=== PATIENT | male | born 1955 | race Caucasian/White ===

== ENCOUNTER 2019-05-07 12:01 | Inpatient (IN) | payer OTHER ==
[2019-05-07 13:36] VITALS: BMI 20.3
--- NOTE | 2019-05-07 13:46 | HP ---
CIWA Score Nausea/Vomitin Muscle Tremors: 4-Moderate,w/Arms Extend Anxiety: 4-Mod. Anxious/Guarded Agitation: 4-Moderately Restless Paroxysmal Sweats: 1-Minimal Palms Moist Orientation: 1-Uncertain about Date Tacttile Disturbances: 0-None Auditory Disturbances: 0-None Visual Disturbances: 1-Very Mild Sensitivity Headache: 1-Very Mild (patient intoxicated) CIWA-Ar Total Score: 19 - Admission Criteria OASAS Guidelines: Admission for Medically Managed Detox: Requires at least one of the followin. CIWA greater than 12 2. Seizures within the past 24 hours 3. Delirium tremens within the past 24 hours 4. Hallucinations within the past 24 hours 5. Acute intervention needed for co occurring medical disorder 6. Acute intervention needed for co occurring psychiatric disorder 7. Severe withdrawal that cannot be handled at a lower level of care (continued vomiting, continued diarrhea, abnormal vital signs) requiring intravenous medication and/or fluids 8. Admitting History and Physical - Admission Chief Complaint: " I want to stop drinking. I don't remember anything." History of Present Illness: 63 year old male with alcohol dependence with intoxication and withdrawals. He is drinking 4 pints of alcohol daily; whiskey daily and beers in between, was drinking alcohol from a water bottle when he came in. He has passed out in the past and has multiple blackout. Patient is a very poor historian. Easily agitated and easily enraged. Patient smokes marijuana sporadically, but denies other substances of abuse on a daily basis. Patient smokes ciggarettes, 1/2 ppd daily, last smoked today. Psurgery: None PMH: None poor historian Limitations to Obtaining History: Intoxication, Poor Historian - Past Surgical History Past Surgical History: Yes: None - Smoking History Smoking history: Current every day smoker Have you smoked in the past 12 months: Yes Aproximately how many cigarettes per day: 2 - Alcohol/Substance Use Hx Alcohol Use: Yes (4 pints of whiskey daily) Number of Drinks Daily: 10 History of Substance Use: reports: Marijuana Date of Last Use: 05/07/19 - Social History Usual Living Arrangement: Yes: Alone Do you think of yourself as: Straight/Heterosexual ADL: Independent Occupation: unemployed History of Recent Travel: No Admission [facility] Chief Complaint: " I want to stop drinking. I don't remember anything." Allergies/Adverse Reactions: Allergies Allergy/AdvReac Type Severity Reaction Status Date / Time No Known Allergies Allergy Verified 06/18/16 17:47 History of Present Illness: 63 year old male with alcohol dependence with intoxication and withdrawals. He is drinking 4 pints of alcohol daily; whiskey daily and beers in between, was drinking alcohol from a water bottle when he came in. He has passed out in the past and has multiple blackout. Patient is a very poor historian. Easily agitated and easily enraged. Patient smokes marijuana sporadically, but denies other substances of abuse on a daily basis. Patient smokes ciggarettes, 1/2 ppd daily, last smoked today. Psurgery: None PMH: None poor historian Exam Limitations: Intoxication - Ebola screening Have you traveled outside of the country in the last 21 days: No Have you had contact with anyone from an Ebola affected area: No Have you been sick,other than usual withdrawal symptoms: No Do you have a fever: No - Review of Systems Constitutional: Chills, Loss of Appetite EENT: reports: Blurred Vision Respiratory: reports: No Symptoms reported Cardiac: reports: No Symptoms Reported GI: reports: Nausea, Abdominal cramping : reports: No Symptoms Reported Musculoskeletal: reports: No Symptoms Reported Integumentary: reports: No Symptoms Reported Neuro: reports: No Symptoms reported Endocrine: reports: No Symptoms Reported Hematology: reports: No Symptoms Reported Psychiatric: reports: Orientated x3 (not oriented to time), Agitated, Anxious Other Systems: Reviewed and Negative Patient History - Patient Medical History Hx Anemia: No Hx Asthma: No Hx Chronic Obstructive Pulmonary Disease (COPD): No Hx Cancer: No Hx Cardiac Disorders: No Hx Congestive Heart Failure: No Hx Hypertension: No Hx Hypercholesterolemia: No Hx Pacemaker: No HX Cerebrovascular Accident: No Hx Seizures: No Hx Dementia: No Hx Diabetes: No Hx Gastrointestinal Disorders: No Hx Liver Disease: No Hx Genitourinary Disorders: No Hx Sexually Transmitted Disorders: No Hx Renal Disease (ESRD): No Hx Thyroid Disease: No Hx Human Immunodeficiency Virus (HIV): No Hx Hepatitis C: No Hx Depression: Yes Hx Suicide Attempt: No Hx Bipolar Disorder: No Hx Schizophrenia: No - Patient Surgical History Past Surgical History: Yes Hx Neurologic Surgery: No Hx Cataract Extraction: No Hx Cardiac Surgery: No Hx Lung Surgery: No Hx Breast Surgery: No Hx Breast Biopsy: No Hx Abdominal Surgery: No Hx Appendectomy: No Hx Cholecystectomy: No Hx Genitourinary Surgery: No Hx Section: No Hx Orthopedic Surgery: No Other Surgical History: ALL TOOTH EXTRACTION Anesthesia Reaction: No - PPD History Previous Implant?: Yes Documented Results: Negative w/proof Implanted On Prior [facility] Admission?: Yes Date: 06/20/16 Results: negative PPD to be Administered?: Yes - Smoking Cessation Smoking history: Current every day smoker Have you smoked in the past 12 months: Yes Aproximately how many cigarettes per day: 2 Cigars Per Day: 0 Hx Chewing Tobacco Use: No Initiated information on smoking cessation: Yes 'Breaking Loose' booklet given: 05/07/19 - Substances abused Alcohol Other (specify): whiskey Substance route: Oral Frequency: Daily Amount used: 4 pints Age of first use: 11 Date of last use: 05/07/19 Admission Physical Exam [facility] - Vital Signs Vital Signs: Vital Signs - 24 hr 05/07/19 05/07/19 13:33 13:36 Temperature 96.7 F L 96.7 F L Pulse Rate 81 81 Respiratory 18 18 Rate Blood Pressure 117/79 117/79 - Physical General Appearance: Yes: Alcohol on Breath, Intoxicated HEENTM: Yes: EOMI, Hearing grossly Normal, Normal ENT Inspection, Normocephalic , Normal Voice, SHAY, Pharynx Normal, Tm's normal Respiratory: Yes: Chest Non-Tender, Lungs Clear, Normal Breath Sounds, No Respiratory Distress, No Accessory Muscle Use Neck: Yes: No masses,lesions,Nodules, Supple, Trachea in good position Breast: Yes: Within Normal Limits Cardiology: Yes: Regular Rhythm, Regular Rate, S1, S2 Abdominal: Yes: Normal Bowel Sounds, Non Tender, Flat, Soft Genitourinary: Yes: Within Normal Limits Back: Yes: Normal Inspection Musculoskeletal: Yes: full range of Motion, Gait Steady Extremities: Yes: Normal Capillary Refill, Normal Inspection, Normal Range of Motion, Non-Tender 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, Fully Oriented, Alert, Motor Strength 5/5, Normal Mood/Affect, Normal Response Integumentary: Yes: Normal Color, Warm Lymphatic: Yes: Within Normal Limits - Diagnostic (1) Alcohol intoxication Current Visit: Yes Status: Active (2) Alcohol dependence with uncomplicated withdrawal Current Visit: Yes Status: Acute (3) Weight loss Current Visit: Yes Status: Acute (4) Frequent falls Current Visit: Yes Status: Chronic Cleared for Admission [facility] - Detox or Rehab [facility] Level of Care: Medically Managed Detox Regimen/Protocol: Librium Screened but not Admitted - Documentation of Visit Screened but not Admitted: No Breathalyzer - Breathalyzer Breathalyzer: 0.312 (drank just before and in waiting room) Urine Drug Screen - Test Device Lot number: [id number] Expiration date: 01/07/21 - Control Is test valid?: Yes - Results Drug screen NEGATIVE: No Urine drug screen results: THC-Marijuana Inpatient Rehab Admission - Rehab Decision to Admit Inpatient rehab admission?: No
[2019-05-07] MEDS ORDERED: MENTHOL/PHENOL 1 EACH UD MM PRN (13:52)
[2019-05-07] MEDS ORDERED: MAG HYDROX/AL HYDROX/SIMETH 30 ML UNIT-DOSE CUP PO PRN (13:52)
[2019-05-07] MEDS ORDERED: IBUPROFEN 400 MG TABLET (FP) PO PRN (13:52)
[2019-05-07] MEDS ORDERED: MAGNESIUM HYDROX 2400MG/30ML ORAL SUSPENSION 30 ML CUP PO PRN (13:52)
[2019-05-07] MEDS ORDERED: METHOCARBAMOL 500 MG TABLET PO PRN (13:52)
[2019-05-07] MEDS ORDERED: BISMUTH SUBSALICYLATE 262 MG/15 ML BTL PO PRN (13:52)
[2019-05-07] MEDS ORDERED: MAGNESIUM CITRATE 300 ML BOTTLE PO PRN (13:52)
[2019-05-07] MEDS ORDERED: ACETAMINOPHEN 325 MG TABLET (FP) PO PRN ×2 (13:52)
[2019-05-07] MEDS ORDERED: chlordiazePOXIDE HCL 25 MG CAPSULE PO PRN (13:52)
[2019-05-07] MEDS ORDERED: hydrOXYzine PAMOATE 25 MG CAPSULE (FP) PO PRN (13:52)
[2019-05-07] MEDS ORDERED: MELATONIN 5 MG TABLETS PO PRN (13:52)
[2019-05-07 17:01] LABS: HEMATOCRIT 38.4 % (35.4-49); HEMOGLOBIN 12.7 GM/dL (11.7-16.9); MCH 34.3 pg (25.7-33.7); MCHC 33.2 g/dl (32.0-35.9); MEAN CELL VOLUME 103.4 fl (80-96); MEAN PLT VOLUME 9.5 fl (7.5-11.1); PLATELET COUNT 149 K/MM3 (134-434); RBC 3.72 M/mm3 (4.00-5.60); RDW 14.4 % (11.9-15.9); WHITE BLOOD COUNT 4.6 K/mm3 (4.0-10.0)
[2019-05-07 17:07] LABS: ALBUMIN 4.5 g/dl (3.4-5.0); BILIRUBIN,TOTAL 0.4 mg/dL (0.2-1); BLOOD UREA NITROGEN 13.4 mg/dL (7-18); CALCIUM 9.2 mg/dL (8.5-10.1); CREATININE 0.8 mg/dL (0.55-1.3); POTASSIUM 4.1 mmol/L (3.5-5.1); TOT PROT 7.6 g/dl (6.4-8.2)
[2019-05-07] MEDS: chlordiazePOXIDE HCL 25 MG CAPSULE PO SCH ×2 (18:15→22:20)
[2019-05-07] MEDS: THIAMINE HCL 100 MG TABLET (FP) PO SCH (22:20)
[2019-05-08] MEDS: chlordiazePOXIDE HCL 25 MG CAPSULE PO SCH ×4 (05:40→22:27)
[2019-05-08] MEDS: NICOTINE 7 MG/24 HOURS TOPICAL PATCH TD SCH (10:43)
[2019-05-08] MEDS: PRENATAL VITAMINS W/ FOLIC ACID TABLET (FP) PO SCH (10:43)
--- NOTE | 2019-05-08 12:08 | PN ---
[facility] CIWA - CIWA Score Nausea/Vomitin-Mild Nausea/No Vomiting Muscle Tremors: 2 Anxiety: 2 Agitation: 2 Paroxysmal Sweats: No Perspiration Orientation: 0-Oriented Tacttile Disturbances: 1-Very Mild Itch/Numbness Auditory Disturbances: 0-None Visual Disturbances: 0-None Headache: 2-Mild CIWA-Ar Total Score: 10 S Progress Note (SOAP) Subjective: alert,irritable,anxious,interrupted sleep, Objective: 05/08/19 12:09 Vital Signs Temperature 97.5 F L 05/08/19 09:41 Pulse Rate 86 05/08/19 09:41 Respiratory Rate 18 05/08/19 09:41 Blood Pressure 105/79 05/08/19 09:41 O2 Sat by Pulse Oximetry (%) Laboratory Last Values WBC 4.6 K/mm3 (4.0-10.0) 05/07/19 13:40 RBC 3.72 M/mm3 (4.00-5.60) L 05/07/19 13:40 Hgb 12.7 GM/dL (11.7-16.9) 05/07/19 13:40 Hct 38.4 % (35.4-49) 05/07/19 13:40 MCV 103.4 fl (80-96) H 05/07/19 13:40 MCH 34.3 pg (25.7-33.7) H 05/07/19 13:40 MCHC 33.2 g/dl (32.0-35.9) 05/07/19 13:40 RDW 14.4 % (11.9-15.9) 05/07/19 13:40 Plt Count 149 K/MM3 (134-434) D 05/07/19 13:40 MPV 9.5 fl (7.5-11.1) 05/07/19 13:40 Sodium 141 mmol/L (136-145) 05/07/19 13:40 Potassium 4.1 mmol/L (3.5-5.1) 05/07/19 13:40 Chloride 104 mmol/L (98-107) 05/07/19 13:40 Carbon Dioxide 29 mmol/L (21-32) 05/07/19 13:40 Anion Gap 9 MMOL/L (8-16) 05/07/19 13:40 BUN 13.4 mg/dL (7-18) 05/07/19 13:40 Creatinine 0.8 mg/dL (0.55-1.3) 05/07/19 13:40 Est GFR (CKD-EPI)AfAm 111.74 05/07/19 13:40 Est GFR (CKD-EPI)NonAf 96.41 05/07/19 13:40 Random Glucose 89 mg/dL (74-106) 05/07/19 13:40 Calcium 9.2 mg/dL (8.5-10.1) 05/07/19 13:40 Total Bilirubin 0.4 mg/dL (0.2-1) 05/07/19 13:40 AST 122 U/L (15-37) H 05/07/19 13:40 ALT 91 U/L (13-61) H 05/07/19 13:40 Alkaline Phosphatase 85 U/L (45-117) 05/07/19 13:40 Total Protein 7.6 g/dl (6.4-8.2) 05/07/19 13:40 Albumin 4.5 g/dl (3.4-5.0) 05/07/19 13:40 RPR Titer Nonreactive (NONREACTIVE) 05/07/19 13:40 Assessment: 05/08/19 12:10 withdrawal symptom Plan: continue detox,repeat ast,alt in am
[2019-05-08] MEDS: THIAMINE HCL 100 MG TABLET (FP) PO SCH (22:27)
[2019-05-09] MEDS: chlordiazePOXIDE HCL 25 MG CAPSULE PO SCH ×4 (06:31→22:46)
[2019-05-09] MEDS ORDERED: LIDOCAINE 5% TOPICAL PATCH TP SCH (10:00)
[2019-05-09 10:07] LABS: SGOT/AST 47 U/L (15-37); SGPT/ALT 60 U/L (13-61)
--- NOTE | 2019-05-09 10:21 | PN ---
S CIWA - CIWA Score Nausea/Vomitin-Mild Nausea/No Vomiting Muscle Tremors: 1-None Visible, but [place] Anxiety: 2 Agitation: 2 Paroxysmal Sweats: No Perspiration Orientation: 0-Oriented Tacttile Disturbances: 1-Very Mild Itch/Numbness Auditory Disturbances: 0-None Visual Disturbances: 0-None Headache: 1-Very Mild CIWA-Ar Total Score: 8 [facility] Progress Note (SOAP) Subjective: alert,irritable,anxious,interrupted sleep,tremor Objective: 05/09/19 10:22 Vital Signs Temperature 98.2 F 05/09/19 09:15 Pulse Rate 94 H 05/09/19 09:15 Respiratory Rate 18 05/09/19 09:15 Blood Pressure 102/75 05/09/19 09:15 O2 Sat by Pulse Oximetry (%) Laboratory Results - last 24 hr 05/09/19 08:00 AST 47 H ALT 60 Assessment: 05/09/19 10:23 withdrawal symptom Plan: continue detox librium regimen
[2019-05-09] MEDS: PRENATAL VITAMINS W/ FOLIC ACID TABLET (FP) PO SCH (10:53)
[2019-05-09] MEDS: NICOTINE 7 MG/24 HOURS TOPICAL PATCH TD SCH (10:54)
[2019-05-09] MEDS: IBUPROFEN 400 MG TABLET (FP) PO PRN ×2 (10:54→19:13)
[2019-05-09] MEDS ORDERED: LIDOCAINE PATCH REMOVAL MC SCH (22:00)
[2019-05-09] MEDS: THIAMINE HCL 100 MG TABLET (FP) PO SCH (22:46)
[2019-05-10] MEDS ORDERED: chlordiazePOXIDE HCL 10 MG CAPSULE PO PRN
[2019-05-10] MEDS ORDERED: chlordiazePOXIDE HCL 10 MG CAPSULE PO SCH (05:00)
--- NOTE | 2019-05-10 08:52 | PN ---
[facility] Progress Note Note: pt states he needs to go home and take care of some personal issues. Pt was made aware to complete detox and prevent any relapse, seizure, OD, DT and or loss, however, pt chose to sign out AMA.
--- NOTE | 2019-05-10 08:56 | DS ---
[facility] Detox Discharge Summary Admission Date: 05/07/19 Discharge Date: 05/10/19 - History Present History: Alcohol Dependence - Physical Exam Results Vital Signs: Vital Signs Temperature 97.2 F L 05/10/19 07:18 Pulse Rate 62 05/10/19 07:18 Respiratory Rate 18 05/10/19 07:18 Blood Pressure 95/60 05/10/19 07:18 O2 Sat by Pulse Oximetry (%) Pertinent Admission Physical Exam Findings: pt arrived in withdrawals Vital Signs Temperature 97.2 F L 05/10/19 07:18 Pulse Rate 62 05/10/19 07:18 Respiratory Rate 18 05/10/19 07:18 Blood Pressure 95/60 05/10/19 07:18 O2 Sat by Pulse Oximetry (%) Laboratory Tests 05/07/19 05/07/19 05/07/19 13:40 13:40 13:40 WBC 4.6 RBC 3.72 L Hgb 12.7 Hct 38.4 MCV 103.4 H MCH 34.3 H MCHC 33.2 RDW 14.4 Plt Count 149 D MPV 9.5 Sodium 141 Potassium 4.1 Chloride 104 Carbon Dioxide 29 Anion Gap 9 BUN 13.4 Creatinine 0.8 Est GFR (CKD-EPI)AfAm 111.74 Est GFR (CKD-EPI)NonAf 96.41 Random Glucose 89 Calcium 9.2 Total Bilirubin 0.4 AST 122 H ALT 91 H Alkaline Phosphatase 85 Total Protein 7.6 Albumin 4.5 RPR Titer Nonreactive 05/09/19 08:00 WBC RBC Hgb Hct MCV MCH MCHC RDW Plt Count MPV Sodium Potassium Chloride Carbon Dioxide Anion Gap BUN Creatinine Est GFR (CKD-EPI)AfAm Est GFR (CKD-EPI)NonAf Random Glucose Calcium Total Bilirubin AST 47 H ALT 60 Alkaline Phosphatase Total Protein Albumin RPR Titer today pt is aaox3 ambulating no acute distress no s/s of withdrawals - Treatment Hospital Course: Detox Protocol Followed, Detoxed Safely, Responded well, Discharged Condition Good, Rehab Referral Accepted Patient has Accepted a Rehab Referral to: pt declined rehab; referral provided - Medication Discharge Medications: Ambulatory Orders NK [No Known Home Medication] 06/18/16 - Diagnosis (1) Alcohol dependence with uncomplicated withdrawal Current Visit: Yes Status: Chronic (2) Frequent falls Current Visit: Yes Status: Chronic (3) Depression (emotion) Current Visit: No Status: Suspected Qualifiers: Depression Type: dysthymia Qualified Code(s): F34.1 - Dysthymic disorder - AMA Did Patient Leave Against Medical Advice: Yes
[2019-05-10 09:24] VITALS: BP 104/76; PULSE 83; TEMP 97.3
[2019-05-11] MEDS ORDERED: chlordiazePOXIDE HCL 10 MG CAPSULE PO SCH (05:00)
[2019-05-12] MEDS ORDERED: chlordiazePOXIDE HCL 10 MG CAPSULE PO ONE (05:00)
== END 2019-05-10 09:50 | disposition left against medical advice (07) | DRG 770 ==
LOC: YASAS 12:01 → Y6N 14:23
PROVIDERS: ADMIT Allergy & Immunology; ATTEND Allergy & Immunology
PROC: HZ2ZZZZ Detoxification Services for Substance Abuse Treatment (ICD-10-PCS; principal; 2019-05-07)
DX: F10.230 Alcohol dependence with withdrawal, uncomplicated (principal); F17.210 Nicotine dependence, cigarettes, uncomplicated; F34.1 Dysthymic disorder; R63.4 Abnormal weight loss; Z68.20 Body mass index [BMI] 20.0-20.9, adult; R29.6 Repeated falls
CPT/HCPCS: 36415; 80053; 84450; 84460; 85027; 86593